=== PATIENT | female | born 1990 | race Hispanic/Latino ===

== ENCOUNTER 2022-03-17 13:09 | Emergency (ER) | payer OTHER, SELFPAY ==
[2022-03-17 14:13] LABS: Bilirubin Neg (Negative); Blood, Urine Negative (Negative); Clarity Clear (Clear); Glucose, Urine (Dipstick) Normal (Negative); Ketone, Urine Negative (Negative); Leukocyte 100 (Negative); Nitrite Negative (Negative); Protein, Urine (Dipstick) Negative (Neg-Trace); Specific Gravity, Urine 1.015 (1.005-1.030); Urobilinogen Normal mg/dL (Less than 2)
[2022-03-17 14:28] LABS: #Eosinphils 0.4 10x3/uL (0.0-0.5); #Monocytes 0.7 10x3/uL (0.0-1.1); #Neutrophils 5.8 10x3/uL (1.5-8.4); %Basophils 0.3 % (0.0-2.0); %Eosinophils 4.9 % (0.0-6.0); %Lymphocytes 22.7 % (18.0-47.0); %Monocytes 7.2 % (0.0-10.0); %Neutrophils 64.5 % (40.0-75.0); Hemoglobin 11.7 g/dL (12.0-15.5); Mean Corpuscular HGB CONC 35.3 g/dL (32.0-36.0); Mean Corpuscular Hemoglobin 30.3 pg (27.0-33.0); Mean Corpuscular Volume 85.8 fl (81.6-98.3); Mean Platelet Volume 10.9 fl (7.4-10.4); Platelet Count 196 10x3/uL (150-450); RBC Distribution Width 11.6 % (11.5-14.5); Red Blood Cell (RBC) Count 3.86 10x6/uL (3.90-5.03)
[2022-03-17 14:28] LABS: Bacteria/HPF 1+ HPF (None Seen); RBC/HPF 0-3 HPF (0-3); Squamous Epithelial 0-3 HPF (0-3); WBC/HPF 0-3 HPF (0-3)
== END 2022-03-17 15:50 | disposition home or self-care (01) ==
LOC: CSHERS 13:09
DX: O20.0 Threatened abortion (principal); O99.891 Other specified diseases and conditions complicating pregnancy; R82.71 Bacteriuria; O99.511 Diseases of the respiratory system complicating pregnancy, first trimester; J45.909 Unspecified asthma, uncomplicated; Z3A.01 Less than 8 weeks gestation of pregnancy
CPT/HCPCS: 36415; 76856; 81003; 81015; 84702; 85025; 86900; 86901; 87086

== ENCOUNTER 2022-10-29 08:36 | Inpatient (IN) | payer OTHER ==
[2022-10-29 09:12] VITALS: BMI 32.8
[2022-10-29] MEDS ORDERED: fentaNYL/Ropivacaine Epidural 100 ML ONE (09:31)
[2022-10-29] MEDS ORDERED: NS w/ Oxytocin 30 units 500 ML ONE (09:31)
[2022-10-29] MEDS ORDERED: Lidocaine 1% (PF) 30 ML VIAL ONE (09:31)
[2022-10-29 09:49] LABS: Hemoglobin 10.6 g/dL (12.0-15.5); Mean Corpuscular HGB CONC 32.4 g/dL (32.0-36.0); Mean Corpuscular Hemoglobin 25.8 pg (27.0-33.0); Mean Corpuscular Volume 79.6 fl (81.6-98.3); Platelet Count 161 10x3/uL (150-450); RBC Distribution Width 12.3 % (11.5-14.5); Red Blood Cell (RBC) Count 4.11 10x6/uL (3.90-5.03); White Blood Cell (WBC) Count 8.6 10x3/uL (3.5-10.5)
[2022-10-29] MEDS ORDERED: Promethazine HCl 25 MG/ML VIAL IM PRN ×3 (10:22→15:31)
[2022-10-29] MEDS ORDERED: Diphenoxylate HCl/Atropine Tablet PO PRN ×2 (10:22)
[2022-10-29] MEDS ORDERED: Docusate 100 MG CAP PO PRN (10:22)
[2022-10-29] MEDS ORDERED: Ondansetron PF 4 MG/2 ML Vial IVP PRN ×3 (10:22→15:31)
[2022-10-29] MEDS ORDERED: Methylergonovine 0.2 MG/ML VIAL IM PRN ×2 (10:22→15:31)
[2022-10-29] MEDS ORDERED: Carboprost 250 MCG/ML AMP IM PRN (10:22)
[2022-10-29] MEDS ORDERED: Ibuprofen 800 MG TAB PO PRN (10:22)
[2022-10-29] MEDS ORDERED: Acetaminophen 500 MG TAB PO PRN (10:22)
[2022-10-29] MEDS ORDERED: Tranexamic Acid 1,000 MG/10 ML VIAL IVP PRN (10:22)
[2022-10-29] MEDS ORDERED: Misoprostol 200 MCG TAB PR PRN (10:22)
[2022-10-29] MEDS ORDERED: fentaNYL 50 mcg/mL 1 mL Vial SLOW IVP PRN (10:22)
[2022-10-29] MEDS ORDERED: Lidocaine 1% (PF) 30 ML VIAL SC PRN (10:22)
[2022-10-29] MEDS ORDERED: hydrALAZINE 20 MG/ML VIAL SLOW IVP PRN ×2 (10:22→15:31)
[2022-10-29] MEDS ORDERED: Butorphanol Tartrate 1 MG/ML VIAL SLOW IVP PRN (10:22)
[2022-10-29] MEDS ORDERED: HYDROcodone/Acetaminophen 5/325 mg Tablet PO PRN ×4 (10:22→15:31)
[2022-10-29] MEDS ORDERED: Moisturizing Cream (Eucerin) 113 GM JAR TOP PRN (10:25)
[2022-10-29] MEDS ORDERED: diphenhydrAMINE 50 MG/ML VIAL IVP PRN (10:25)
[2022-10-29] MEDS ORDERED: ePHEDrine Sulfate 50 MG/10 ML VIAL SLOW IVP PRN (10:25)
[2022-10-29] MEDS ORDERED: Acetaminophen 325 MG TAB PO PRN (10:25)
[2022-10-29] MEDS ORDERED: Naloxone HCl 0.4 mg/ml Vial IVP PRN ×2 (10:25)
[2022-10-29] MEDS ORDERED: Lactated Ringer's 500 ML IV PRN (10:25)
[2022-10-29] MEDS ORDERED: Communication Order-Pharmacy FS SCH (10:30)
[2022-10-29] MEDS ORDERED: NS w/ Oxytocin 30 units 500 ML IV SCH ×4 (10:30→15:31)
[2022-10-29] MEDS ORDERED: fentaNYL 2 mcg/Ropivacaine 0.2% Epidural 100 ML CADD EPIDURAL SCH (10:30)
[2022-10-29] MEDS ORDERED: Lactated Ringer's 1,000 ML IV SCH (10:30)
[2022-10-29 12:56] LABS: HBSAg Index 0.17 S/CO (0-0.99); HIV (1/2) Antibody/Antigen Non-Reactive (NonReactive); HIV 1/2 INDEX 0.06 S/CO (<1.00); Hep B Surf Ag - L&D Non-Reactive S/CO (NonReactive)
[2022-10-29 13:05] LABS: Syphilis Antibody Nonreactive (Nonreactive); Syphilis Antibody Index 0.05 S/CO (<1.00 Non-Reactive)
[2022-10-29] MEDS ORDERED: Bupivacaine 0.25% HCL 30 ML VIAL ONE (14:00)
[2022-10-29] MEDS ORDERED: Bisacodyl 10 MG SUPP PR PRN (15:31)
[2022-10-29] MEDS ORDERED: Preparation H Ointment 28 GM TUBE PR PRN (15:31)
[2022-10-29] MEDS ORDERED: Varicella virus, LIVE 0.5 ML VIAL SC ONE (15:31)
[2022-10-29] MEDS ORDERED: diphenhydrAMINE 25 MG CAP PO PRN (15:31)
[2022-10-29] MEDS ORDERED: Zolpidem Tartrate 5 MG TAB PO PRN (15:31)
[2022-10-29] MEDS ORDERED: Milk Of Magnesia 30 ML UDCUP PO PRN (15:31)
[2022-10-29] MEDS ORDERED: Measles/Mumps/Rubella 10 MCG/0.5 ML VIAL SC ONE (15:31)
[2022-10-29] MEDS ORDERED: Lanolin Ointment 7 GM TUBE TOP PRN (15:31)
[2022-10-29] MEDS ORDERED: Benzocaine-Menthol 82.5 ML CAN TOP PRN (15:31)
[2022-10-29] MEDS ORDERED: Boostrix 0.5 ML (Tdap) VIAL (>/=7 yrs of age) IM ONE (15:31)
[2022-10-29] MEDS ORDERED: Misoprostol 200 MCG TAB VAG PRN (15:31)
[2022-10-29] MEDS: Ferrous Sulfate 325 MG TAB PO SCH (16:37)
[2022-10-29] MEDS: Docusate 100 MG CAP PO SCH (21:42)
[2022-10-29] MEDS: Ibuprofen 800 MG TAB PO SCH (21:42)
[2022-10-30 03:13] LABS: Hemoglobin 9.4 g/dL (12.0-15.5); Mean Corpuscular HGB CONC 32.3 g/dL (32.0-36.0); Mean Corpuscular Hemoglobin 25.7 pg (27.0-33.0); Mean Corpuscular Volume 79.5 fl (81.6-98.3); Mean Platelet Volume 12.6 fl (7.4-10.4); Platelet Count 140 10x3/uL (150-450); RBC Distribution Width 12.3 % (11.5-14.5); Red Blood Cell (RBC) Count 3.66 10x6/uL (3.90-5.03); White Blood Cell (WBC) Count 10.2 10x3/uL (3.5-10.5)
[2022-10-30] MEDS: Ibuprofen 800 MG TAB PO SCH ×2 (05:47→16:47)
[2022-10-30] MEDS ORDERED: Prenatal Vitamin 1 TAB PO SCH (09:00)
[2022-10-30] MEDS: Docusate 100 MG CAP PO SCH (09:22)
[2022-10-30] MEDS: Ferrous Sulfate 325 MG TAB PO SCH ×2 (09:22→16:46)
[2022-10-30 11:05] VITALS: BP 117/73; TEMP 97.7
== END 2022-10-30 16:40 | disposition home or self-care (01) | DRG 807 ==
LOC: CSHLD/OP 08:36 → CSHLD 09:19 → CSHPED 15:45
PROVIDERS: ADMIT Obstetrics & Gynecology; ATTEND Obstetrics & Gynecology
PROC: 10E0XZZ Delivery of Products of Conception, External Approach (ICD-10-PCS; principal; 2022-10-29)
PROC: 0KQM0ZZ Repair Perineum Muscle, Open Approach (ICD-10-PCS; 2022-10-29)
DX: O70.1 Second degree perineal laceration during delivery (principal); Z37.0 Single live birth; Z3A.39 39 weeks gestation of pregnancy
CPT/HCPCS: 36415; 51702; 85027; 86780; 86850; 86900; 86901; 87340; 87389; 99285; J2590; S0020